=== PATIENT | male | born 1955 | race Caucasian/White ===

== ENCOUNTER → 2016-12-17 | Outpatient (CLI) | payer OTHER | LOC: BRMIMAGING 09:11 | PROVIDERS: ATTEND Internal Medicine | DX: S82.002A Unspecified fracture of left patella, initial encounter for closed fracture (principal); M25.561 Pain in right knee; M25.571 Pain in right ankle and joints of right foot; M25.572 Pain in left ankle and joints of left foot | CPT/HCPCS: 73562-PO; 73630-PO ==